=== PATIENT | female | born 1950 | race Caucasian/White ===

== ENCOUNTER 2021-07-13 09:19 | Outpatient (CLI) | payer MEDICARE, BC | END 2021-07-13 09:20 | disposition home or self-care (01) | LOC: CSHMAMMO 09:19 | PROVIDERS: ATTEND Internal Medicine | DX: Z12.31 Encounter for screening mammogram for malignant neoplasm of breast (principal) | CPT/HCPCS: 77063; 77067 ==

== ENCOUNTER 2022-07-25 09:37 | Outpatient (CLI) | payer MEDICARE, BC | END 2022-07-25 09:38 | disposition home or self-care (01) | LOC: CSHMAMMO 09:37 | PROVIDERS: ATTEND Internal Medicine | DX: Z12.31 Encounter for screening mammogram for malignant neoplasm of breast (principal); Z13.820 Encounter for screening for osteoporosis; M85.89 Other specified disorders of bone density and structure, multiple sites; Z78.0 Asymptomatic menopausal state | CPT/HCPCS: 77063; 77067; 77080 ==

== ENCOUNTER 2025-04-12 16:56 | Outpatient (CLI) | payer MEDICARE | END 2025-04-12 16:57 | disposition home or self-care (01) | LOC: CSHSP 16:56 → CSHRAD 16:57 | DX: R05.9 Cough, unspecified (principal) | CPT/HCPCS: 71046 ==